=== PATIENT | female | born 1950 | race Caucasian/White ===

== ENCOUNTER 2023-05-20 02:14 | Emergency (ER) | payer OTHER, SELFPAY ==
--- NOTE | ~2023-05-20 | XR_ITS ---
XR chest 2V DATE: 05/20/2023 03:05 INDICATION: Dyspnea TECHNIQUE: 2 views COMPARISON: None FINDINGS: Mild thyromegaly. No hilar or mediastinal enlargement. No pulmonary infiltrate or consolidation, pleural effusion or pulmonary vascular congestion or pneumo thorax is detected. Dextroscoliosis and diffuse idiopathic skeletal hyperostosis of the thoracic spine. Levoscoliosis and degenerative disc disease of the lumbar spine. IMPRESSION: Mild cardiac megaly No active pulmonary disease Scoliosis and degenerative changes of the thoracic and lumbar spine Reviewed, dictated and finalized at location A.
[2023-05-20 02:13] VITALS: BP 160/87; PULSE 92; RESP 20; TEMP 36.4; O2SAT 94
--- NOTE | 2023-05-20 02:30 | ECG_ITS ---
Measurements Intervals [place] Rate: 93 P: 38 OK: 137 QRS: 16 QRSD: 106 T: 10 QT: 369 QTc: 461 Interpretive Statements SINUS RHYTHM INCOMPLETE RIGHT BUNDLE BRANCH BLOCK BASELINE ARTIFACT- I, II, III, AVR, AVL, AVF BORDERLINE ECG NO PREVIOUS ECG AVAILABLE FOR COMPARISON Electronically Signed On 05-20-2023 8:53:07 CDT by Syd Cooper D.O.
--- NOTE | 2023-05-20 02:38 | ED.GENADULT ---
HPI - General Adult General Chief complaint: Anxiety Stated complaint: ANXIETY, INSOMNIA, SOB Time Seen by Provider: 05/20/23 02:23 History of Present Illness HPI narrative: Patient is 72-year-old female who presents emerged from with chief complaint of anxiety. Patient reports that she has history of depression and was recently admitted at [facility] for suicidal ideation and depression. The patient reports she is currently staying with family members this evening and forgot her inhaler and has taken several melatonin without ability to sleep. Patient states that tonight she did get short of breath and little bit of a fullness sensation in her chest patient reports that EMS gave her some oxygen and by the time she arrived to the emergency department the symptoms have resolved. The patient denies suicidal or homicidal ideation Related Data Allergies Allergy/AdvReac Type Severity Reaction Status Date / Time No Known Allergies Allergy Verified 05/20/23 02:48 Review of Systems Review of Systems: A 10 system review of systems was completed on the patient and is negative except for what is stated in the HPI. Nursing and ancillary documentation was reviewed. PMFSH Social History Social History Substance use type: does not use Exam Narrative: GENERAL: Well-appearing, well-nourished, and in no acute distress. HEAD: Normocephalic, atraumatic. EYES: PERRLA and EOMI. ENT: Nares clear, no rhinorrhea or epistaxis. Mucous membranes moist. NECK: Supple. CHEST: Clear to auscultation. No respiratory distress. HEART: Regular rate and rhythm. No murmur heard. Normal peripheral pulses. ABDOMEN: Soft, nontender, nondistended, normal active bowel sounds. EXTREMITIES: Normal range of motion. No edema. SKIN: Warm, dry, no rash. NEURO: No focal deficits. Alert and oriented x3. PSYCH: Normal mood and affect. Course Vital Signs Vital signs: Vital Signs Temperature 36.4 C L 05/20/23 02:13 Pulse Rate 92 05/20/23 02:13 Respiratory Rate 20 05/20/23 02:13 Blood Pressure 160/87 H 05/20/23 02:13 Pulse Oximetry 94 05/20/23 02:13 Oxygen Delivery Room Air 05/20/23 02:13 Temperature 36.4 C L 05/20/23 02:13 Pulse Rate 92 05/20/23 02:13 Respiratory Rate 20 05/20/23 02:13 Blood Pressure 160/87 H 05/20/23 02:13 Pulse Oximetry 94 05/20/23 02:13 Oxygen Delivery Room Air 05/20/23 02:13 Medical Decision Making Vital Signs Vital Signs: Vital Signs Temperature 36.4 C L 05/20/23 02:13 Pulse Rate 92 05/20/23 02:13 Respiratory Rate 20 05/20/23 02:13 Blood Pressure 160/87 H 05/20/23 02:13 Pulse Oximetry 94 05/20/23 02:13 Oxygen Delivery Room Air 05/20/23 02:13 Temperature 36.4 C L 05/20/23 02:13 Pulse Rate 92 05/20/23 02:13 Respiratory Rate 20 05/20/23 02:13 Blood Pressure 160/87 H 05/20/23 02:13 Pulse Oximetry 94 05/20/23 02:13 Oxygen Delivery Room Air 05/20/23 02:13 Discharge Plan Discharge Clinical Impression: Acute anxiety, Insomnia Patient Disposition: Home, Self-Care Condition: Stable Instructions: Antibiotic Form, Insomnia (ED), Anxiety (ED) Follow-up/Referrals: German,Anam Wagner [Primary Care Provider] - Time of Disposition: 03:33
[2023-05-20] MEDS: LORazepam (*CRX) 0.5 MG TABLET PO (02:48)
[2023-05-20 03:42] VITALS: BP 144/86; PULSE 89; RESP 16; O2SAT 93
== END 2023-05-20 03:44 | disposition home or self-care (01) ==
PROVIDERS: Emergency Provider Emergency Medicine; PCP Internal Medicine Infectious Disease
DX: F41.9 Anxiety disorder, unspecified (principal); F32.A Depression, unspecified; G47.00 Insomnia, unspecified; I45.10 Unspecified right bundle-branch block
CPT/HCPCS: 71046; 93005; 99283; A9270

== ENCOUNTER 2023-07-19 21:21 | Inpatient (IN) | payer OTHER, SELFPAY ==
--- NOTE | ~2023-07-19 | CT_ITS ---
EXAMINATION: CT brain wo con DATE: 07/20/2023 00:33 INDICATION: Dizziness. TECHNIQUE: Computed tomography (CT) of the head was performed without intravenous contrast. The mA wa s adjusted according to patient size. Iterative reconstruction technique was employed. The dose-lengt h product was 681.00 mGy-cm. COMPARISON: None FINDINGS: There is no intracranial hemorrhage, acute infarction, or abnormal intracranial mass lesion . The ventricles are normal in size. The orbits are normal. The mastoid air cells are normal. There i s mild mucosal thickening in the paranasal sinuses. The orbits are normal. IMPRESSION: 1. Normal brain. Reviewed, dictated and finalized at location E. IMPRESSION: 1. Normal brain.
--- NOTE | ~2023-07-19 | XR_ITS ---
EXAMINATION: XR chest 1V portable INDICATION: Cough and dizziness TECHNIQUE: Portable AP chest at 1115 hours COMPARISON: 05/20/2023 FINDINGS: The lungs are free of acute opacities. No pleural effusion or pneumothorax. The heart size is normal. IMPRESSION: 1. No acute cardiopulmonary abnormality. Reviewed, dictated and finalized at location F.
[2023-07-19 21:24] VITALS: BP 155/86; PULSE 89; RESP 18; TEMP 35.7; O2SAT 95
--- NOTE | 2023-07-19 21:27 | ECG_ITS ---
Measurements Intervals [place] Rate: 87 P: 53 [place]: 165 QRS: 43 QRSD: 99 T: 57 QT: 403 QTc: 486 Interpretive Statements SINUS RHYTHM INCOMPLETE RIGHT BUNDLE BRANCH BLOCK BASELINE ARTIFACT- I, II, III, AVR, AVL BORDERLINE ECG COMPARED TO ECG 05/20/2023 02:47:47 NO SIGNIFICANT CHANGES Electronically Signed On 07-20-2023 6:23:36 CDT by Syd Cooper D.O.
[2023-07-19] MEDS: SODIUM CHLORIDE 0.9% IV 1,000 ML 999 ML IV CONT (23:03)
[2023-07-19] MEDS: ONDANSETRON INJ 4 MG/2 ML VIAL IV PUSH (23:03)
[2023-07-19 23:11] LABS: Basophils Absolute Auto 0.1 K/mm3 (0.0-0.1); Basophils Percent Auto 0.6 % (0.2-1.2); Eosinophils Absolute Auto 0.1 K/mm3 (0-0.3); Eosinophils Percent Auto 0.9 % (0-4.4); Hematocrit 40.4 % (37.0-47.0); Hemoglobin 13.7 g/dL (12.0-15.0); Immature Granulocyte Absolute 0.02 K/mm3 (0.00-0.031); Immature Granulocyte Percent A 0.3 % (0-0.5); Mean Corpuscular HGB Conc 33.9 g/dl (32-36); Mean Corpuscular Hemoglobin 29.2 pg (26-34); Mean Corpuscular Volume 86.1 fl (80-100); Mean Platelet Volume 11.2 fl (7.4-10.4); Monocytes Absolute Auto 0.9 K/mm3 (0.1-0.6); Monocytes Percent Auto 11.4 % (2.6-8.5); Neutrophils Absolute Auto 5.4 K/mm3 (1.3-6.7); Neutrophils Percent Auto 67.8 % (45.5-73.1); Platelet Count Result 287 k/mm3 (150-375); Red Blood Count 4.69 M/mm3 (4.2-5.4); Red Cell Distribution Width 13.5 % (11.5-14.5); White Blood Count 7.9 K/mm3 (4.5-10.0)
[2023-07-19 23:21] LABS: Lactic Acid Reflex 0.9 mmol/L (0.7-2.0); Prothrombin Time 13.7 Seconds (11.1-14.7)
[2023-07-19 23:22] LABS: Partial Thromboplastin Time 25.5 SECONDS (22.3-36.8)
[2023-07-19 23:48] LABS: Alanine Aminotransferase 25 U/L (6-35); Albumin Level 4.6 g/dL (3.5-5.1); Alkaline Phosphatase 79 U/L (38-126); Anion Gap 5 mmol/L (8-16); Aspartate Amino Transferase 27 U/L (14-36); Bilirubin,Total 0.9 mg/dL (0.2-1.3); Blood Urea Nitrogen 9 mg/dL (7-17); Calcium 9.3 mg/dL (8.4-10.2); Carbon Dioxide 30 mmol/L (22-30); Chloride 89 mmol/L (98-107); Estimated CRCL calculation 74 ml/min; Estimated Glomerular Filt Rate > 60; Glucose 126 mg/dL (65-110); Lipase 221 U/L (23-300); Magnesium 1.9 mg/dL (1.6-2.3); Potassium 3.4 mmol/L (3.4-5.0); Sodium 124 mmol/L (137-145)
[2023-07-20] VITALS (20 sets, daily range): BP systolic 131–171; BP diastolic 67–92; PULSE 76–110; RESP 12–18; TEMP 35.9–37; O2SAT 93–100; BMI 34.0
[2023-07-20 00:01] LABS: Troponin I < 0.012 ng/mL (0.000-0.034)
--- NOTE | 2023-07-20 00:46 | ED.GENADULT ---
HPI - General Adult General Chief complaint: Dizziness Stated complaint: dizziness Time Seen by Provider: 07/20/23 00:01 History of Present Illness HPI narrative: Patient is a 72-year-old female who presents the emergency department with chief complaint of dizziness. Patient reports throughout the day she has had dizzy episodes that she describes as pressure in her head patient also reports that she has had nausea and vomiting and reports that she has felt generally weak. The patient reports that she is scheduled to started a memory care unit on Sunday the patient did receive some IV fluids and Zofran upon initial arrival in the emergency department is feeling better Related Data Allergies Allergy/AdvReac Type Severity Reaction Status Date / Time No Known Allergies Allergy Verified 07/20/23 00:15 Review of Systems Review of Systems: A 10 system review of systems was completed on the patient and is negative except for what is stated in the HPI. Nursing and ancillary documentation was reviewed. PMFSH Social History Social History Substance use type: does not use Exam Narrative: GENERAL: Well-appearing, well-nourished, and in no acute distress. HEAD: Normocephalic, atraumatic. EYES: PERRLA and EOMI. ENT: Nares clear, no rhinorrhea or epistaxis. Mucous membranes moist. NECK: Supple. CHEST: Clear to auscultation. No respiratory distress. HEART: Regular rate and rhythm. No murmur heard. Normal peripheral pulses. ABDOMEN: Soft, nontender, nondistended, normal active bowel sounds. EXTREMITIES: Normal range of motion. No edema. SKIN: Warm, dry, no rash. NEURO: No focal deficits. Alert and oriented x3. PSYCH: Normal mood and affect. Course Vital Signs Vital signs: Vital Signs Temperature 35.7 C L 07/19/23 21:24 Pulse Rate 89 07/19/23 21:24 Respiratory Rate 18 07/19/23 21:24 Blood Pressure 155/86 H 07/19/23 21:24 Pulse Oximetry 95 07/19/23 21:24 Oxygen Delivery Room Air 07/19/23 21:24 Temperature 35.7 C L 07/19/23 21:24 Pulse Rate 110 H 07/20/23 00:20 Respiratory Rate 18 07/19/23 21:24 Blood Pressure 131/82 07/20/23 00:20 Pulse Oximetry 95 07/19/23 21:24 Oxygen Delivery Room Air 07/19/23 21:24 Medical Decision Making MDM Narrative Medical decision making narrative: Differential diagnosis includes infectious process, electrolyte abnormality, dehydration, dysrhythmia Laboratory studies were obtained on the patient which showed a sodium of 124 The patient has received a liter of normal saline in the emergency department Chest x-ray showed no acute abnormalities Head showed no evidence of hemorrhage EKG showed sinus rhythm rate of [address] elevation or ST depression Due to hyponatremia the patient will be admitted to the hospital service for further care. Vital Signs Vital Signs: Vital Signs Temperature 35.7 C L 07/19/23 21:24 Pulse Rate 89 07/19/23 21:24 Respiratory Rate 18 07/19/23 21:24 Blood Pressure 155/86 H 07/19/23 21:24 Pulse Oximetry 95 07/19/23 21:24 Oxygen Delivery Room Air 07/19/23 21:24 Temperature 35.7 C L 07/19/23 21:24 Pulse Rate 110 H 07/20/23 00:20 Respiratory Rate 18 07/19/23 21:24 Blood Pressure 131/82 07/20/23 00:20 Pulse Oximetry 95 07/19/23 21:24 Oxygen Delivery Room Air 07/19/23 21:24 Lab Data 07/19/23 23:02 07/19/23 23:02 Labs: Lab Results 07/19/23 Range/Units 23:02 WBC 7.9 (4.5-10.0) K/mm3 RBC 4.69 (4.2-5.4) M/mm3 Hgb 13.7 (12.0-15.0) g/dL Hct 40.4 (37.0-47.0) % MCV 86.1 (80-100) fl MCH 29.2 (26-34) pg MCHC 33.9 (32-36) g/dl RDW 13.5 (11.5-14.5) % Plt Count 287 (150-375) k/mm3 MPV 11.2 H (7.4-10.4) fl Immature Gran % (Auto) 0.3 (0-0.5) % Neut % (Auto) 67.8 (45.5-73.1) % Lymph % (Auto) 19.0 (18.3-44.2) % [place] % (Auto) 11.4 H (
--- NOTE | 2023-07-20 01:42 | PM.IMHP ---
H&P: HPI History of Present Illness Date/Time: 07/20/23 01:20 Chief Complaint: Dizziness. Narrative: This is a 72-year-old female recently diagnosed with early-onset dementia, bipolar disorder, depression, anxiety, hypothyroidism, hypertension, hyperlipidemia, and chronic obstructive pulmonary disease who presented to the emergency department via private vehicle accompanied by her sister for evaluation of dizziness. The patient provides the following history and her sister provides additional information with the patient's permission. Is not unusual for the patient to have vertigo every once in a while and she has a prescription for meclizine at home. The last couple of days she has once again started complaining of vertigo associated with nausea and a pressure-like sensation in her head. Sister is a retired nurse and has been monitoring her blood pressures which have been running in the 170s over 100s which is very unusual for her. She is on 12.5 mg of hydrochlorothiazide daily however yesterday her sister gave her 3 doses of the hydrochlorothiazide 8 hours apart in attempts to get the blood pressure down. Blood pressures have improved somewhat though the patient seems to be feeling increasingly dizzy and nauseated. She was thus brought in for evaluation. The patient describes constant movement, feeling as though she is on a boat. She continues to have a pressure-like headache throughout and nausea with dry heaves but no vomiting. She has not had fever, chills, sweats, sore throat, cough, chest pain, palpitations, vomiting, diarrhea, or dysuria. She also denies visual changes, facial droop, difficulty speaking and swallowing, focal weakness, and paresthesias. Aside from extra doses of hydrochlorothiazide, she recently had her Prozac increased from 40 mg to 60 mg daily, and she was taken off of trazodone in favor of quetiapine 100 mg at bedtime. She does not drink fluid in excess. In the ED: She was afebrile on arrival and her blood pressures have been in the 130s to 150s systolic. Labs were significant for a sodium of 124, potassium 3.4, chloride 89, creatinine 0.60. Brain CT and chest x-ray showed no acute findings. EKG showed a sinus rhythm without ST segment depressions or elevations. She is being admitted in this setting for evaluation of vertigo in addition to hyponatremia. Review of Systems Review of Systems: Twelve systems were reviewed. Approximately 8 weeks ago the patient had a suicidal ideation. She has had a longstanding history of bipolar disorder, anxiety, and depression. Several years ago she had electroconvulsive therapy treatment which seemed to improve her symptoms of depression however her memory has not been great since that time. She suffers from short-term memory loss and was recently diagnosed with early-onset dementia. She does not currently have any suicidal ideations, plans for suicide, or harmful thoughts. Except as documented, all other systems were reviewed and are negative. [facility] Past Medical History Medical History (Updated 07/20/23 @ 04:09 by Manisha Apodaca PA-C) Anxiety Bipolar disorder Chronic obstructive pulmonary disease Depression History of suicide attempt Hyperlipidemia Hypertension Hypothyroidism Macular degeneration Osteoarthritis Prediabetes Family History Family History (Updated 07/20/23 @ 04:05 by Manisha Apodaca PA-C) Mother Bipolar disorder Social History Social History (Updated 07/20/23 @ 04:06 by Manisha Apodaca PA-C) Social History: Healthcare power of research attorney: Elba Monkau, sister. Code status: Do not resuscitate. Smoking status: Former smoker Tobacco type: cigarettes Alcohol intake: never Substance use: never Substance use type: does not use Lack of Transportation: No Lack of Food: Never True Current Housing: I Have Housing Concerned About Future Housing: No Difficulty Paying Gas/Electric Bills: No Difficulty Paying for Meds: No Currently Une
--- NOTE | 2023-07-20 02:04 | ADMGEN ---
This patient, Hayley Jasso, was admitted to [facility] Surg Room 324-02 at 0205. Patient/family oriented to hospital policies and general routines including ID bracelet, bed and alarms, visiting hours, pain management, procedures, bathroom and other care routines, personal items, smoking policy, room service/diet, and visiting hours. Information on how to activate the Rapid Response Team has been discussed. Patient/Family are encouraged to report perceived risks to care and to ask questions if they do not understand what they are told or what they should do.
[2023-07-20] MEDS: ONDANSETRON INJ 4 MG/2 ML VIAL IV PUSH ×2 (02:10→08:36)
[2023-07-20] MEDS: SODIUM CHLORIDE 0.9% IV 1,000 ML 125 ML IV CONT (02:15)
--- NOTE | 2023-07-20 03:30 | PC.NURSE ---
pt c/o nausea and dizziness during admission assessment. iv zofran administered with some relief. at 031 pt began feeling nauseous and dizzy again and began yelling help me! into the call light and the hallway. call placed to hospitalist who stated she will put in orders
[2023-07-20] MEDS: diazePAM (*CRX) 5 MG TABLET PO (04:06)
--- NOTE | 2023-07-20 04:07 | PC.NURSE ---
order for one time dose of PO valium received. medication administered per MAR
[2023-07-20 04:09] LABS: Anion Gap 5 mmol/L (8-16); Blood Urea Nitrogen 8 mg/dL (7-17); Calcium 8.7 mg/dL (8.4-10.2); Carbon Dioxide 29 mmol/L (22-30); Chloride 90 mmol/L (98-107); Estimated CRCL calculation 76 ml/min; Estimated Glomerular Filt Rate > 60; Glucose 113 mg/dL (65-110); Sodium 124 mmol/L (137-145)
[2023-07-20 04:31] LABS: Thyroid Stimulating Hormone Reflex 0.576 uIU/mL (0.465-4.68)
--- NOTE | 2023-07-20 04:49 | PC.NURSE ---
pt had a continent void, however RN is unable to collect void as urine sample as it was contaminated with stool. new hat placed in toilet
--- NOTE | 2023-07-20 05:55 | PC.NURSE ---
pt up to bathroom w/ assist of 1 and a walker, and states that she feels less dizzy and less nauseous than before
--- NOTE | 2023-07-20 06:14 | PC.NURSE ---
sister bringing in paperwork stating patient wants to be DNR
[2023-07-20] MEDS: LEVOTHYROXINE SODIUM 88 MCG TABLET PO (06:17)
[2023-07-20 07:18] LABS: Sodium 123 mmol/L (137-145)
[2023-07-20 07:40] LABS: Creatinine Urine 57.4 mg/dL
[2023-07-20] MEDS: UMECLIDINIUM/VILANTEROL 62.5-25 MCG ELLIPTA 1 PUFF INHALATION (07:41)
[2023-07-20 07:45] LABS: Sodium Urine Random 189 meq/L
[2023-07-20 08:08] LABS: Glucose Point of Care 119 mg/dl (65-105)
[2023-07-20 08:08] LABS: Appearance Urine Cloudy (Clear); Bacteria Urine 1+ /hpf; Bilirubin Urine Negative (Negative); Blood Urine Negative (Negative); Color Urine Yellow (Yellow); Glucose Urine UA Negative (Negative); Granular Casts Urine Present /lpf; Ketones Urine Negative (Negative); Leukocyte Esterase Ur Trace LEU/UL (Negative); Nitrate Urine Negative (Negative); Non Pathogenic Casts 0-2; Protein Urine Negative (Negative); Specific Grav Ur 1.014 (1.001-1.035); Squamous Epithelial Cell Urine Occasional /hpf (Few); Urobilinogen Urine 0.2 mg/dL (<2.0); WBC Urine 0-5 /hpf
[2023-07-20] MEDS: FLUoxetine HCL 20 MG CAPSULE 60 MG PO (08:37)
[2023-07-20] MEDS: DONEPEZIL HCL 5 MG TABLET PO (08:37)
[2023-07-20] MEDS: SIMVASTATIN 20 MG TABLET PO (08:37)
[2023-07-20] MEDS: hydrOXYzine pamoate 25 MG CAPSULE PO ×2 (08:37→20:55)
[2023-07-20 08:49] LABS: Add Urine Microscopic? YES
[2023-07-20 11:25] LABS: Glucose Point of Care 149 mg/dl (65-105)
[2023-07-20 11:40] LABS: Sodium 123 mmol/L (137-145)
--- NOTE | 2023-07-20 14:00 | PM.IMPN ---
Progress Note: A&P Assessment and Plan (1) Hyponatremia: Code(s): E87.1 - Hypo-osmolality and hyponatremia Status: Acute (2) Hypertension: Code(s): I10 - Essential (primary) hypertension Status: Acute (3) Hyperlipidemia: Code(s): E78.5 - Hyperlipidemia, unspecified Status: Acute (4) Hypothyroidism: Code(s): E03.9 - Hypothyroidism, unspecified Status: Acute (5) Bipolar disorder: Code(s): F31.9 - Bipolar disorder, unspecified Status: Acute Plan # SIADH? , hyponatremia -continue to monitor electrolytes -Sodium 123 -Seroquel, hydrochlorothiazide, fluoxetine -awaiting serum osmolarity, ur osm 189 # depression, bipolar -depression antidepressants however now having hyponatremia which may be caused by these medications -for anxiety may continue p.r.n. hydroxyzine -currently on Prozac 60 mg daily, home Seroquel held # chronic conditions -dementia: Continue Aricept -hyperlipidemia: Simvastatin -hypothyroidism: Levothyroxine, TSH 0.576 -COPD: Continue home Anoro Ellipta -essential hypertension: Hydrochlorothiazide Diet: Diabetic diet DVT prophylaxis: SQ heparin Code status: Full code Disposition: Pending PT OT, likely home in 2-3 days Subjective Date/time seen: 07/20/23 14:00 Interval history: Patient seen and examined. She states she is depressed but does not have any other complaints. She recently had increased prozac dose, and we may have to stop that if Na does not improve. Will continue to monitor electrolytes. Hyponatremia may be secondary to extra dose of hydrochlorothiazide. Patient denies fever, chills, nausea vomiting, diarrhea. Review of Systems Review of Systems: 10 point ROS complete, negative other than what is specified in HPI. Exam Narrative: - GENERAL: Pleasant woman in no acute distress. Well-nourished. - EYES: EOMI. Anicteric. - HENT: Moist mucous membranes. - LUNGS: Clear to auscultation bilaterally, no wheezing, rhonchi, or rales. - CARDIOVASCULAR: Regular rate and rhythm. - ABDOMEN: Soft, non-tender and non-distended. No palpable masses. - EXTREMITIES: No edema. Peripheral pulses 2+. Non-tender. - NEUROLOGIC: No focal neurological deficits. CN II-XII grossly intact. - PSYCHIATRIC: Awake, Alert. Flat affect, depressed mood. - SKIN: No rashes or lesions. Warm. - LYMPH: No cervical lymphadenopathy. Objective Data Vital Signs Vital Signs: Vital Signs - 24 hr 07/19/23 21:24 07/20/23 00:17 07/20/23 00:19 Temperature 35.7 C L Pulse Rate 89 86 93 Respiratory Rate 18 Blood Pressure 155/86 H 143/81 H 138/92 H Pulse Oximetry 95 Oxygen Delivery Room Air Fraction of Inspired Oxygen 07/20/23 00:20 07/20/23 02:29 07/20/23 01:49 Temperature 36.1 C L Pulse Rate 110 H 80 87 Respiratory Rate 18 18 Blood Pressure 131/82 151/76 H 132/87 Pulse Oximetry 93 100 Oxygen Delivery Fraction of Inspired Oxygen 07/20/23 03:52 07/20/23 04:00 07/20/23 06:00 Temperature 35.9 C L Pulse Rate 78 84 Respiratory Rate 18 Blood Pressure 143/74 H Pulse Oximetry 95 Oxygen Delivery Room Air Fraction of Inspired Oxygen 07/20/23 07:41 07/20/23 07:41 07/20/23 08:00 Temperature 36.1 C L Pulse Rate 79 86 Respiratory Rate 18 12 Blood Pressure 164/89 H Pulse Oximetry 93 96 Oxygen Delivery Room Air Fraction of Inspired Oxygen 07/20/23 08:11 07/20/23 08:12 07/20/23 08:35 Temperature Pulse Rate 94 98 76 Respiratory Rate Blood Pressure 157/86 H 137/84 Pulse Oximetry 96 96 Oxygen Delivery Fraction of Inspired Oxygen 07/20/23 08:35 Temperature Pulse Rate Respiratory Rate Blood Pressure Pulse Oximetry Oxygen Delivery Room Air Fraction of Inspired Oxygen Intake/Output Intake/Output: Intake & Output 07/17/23 07/18/23 07/19/23 07/20/23 23:59 23:59 23:59 23:59 Intake Total 1000 354 Output Total 300 Balance 1000 54 Meds/Res
[2023-07-20 16:04] LABS: Sodium 120 mmol/L (137-145)
--- NOTE | 2023-07-20 16:40 | PM.CNNEP ---
Assessment and Plan Assessment and plan (1) Hyponatremia: Code(s): E87.1 - Hypo-osmolality and hyponatremia Status: Acute Assessment and Plan: presumably acute precipitated by more frequent use of HCTZ and increased dose of SSRI(?) HCTZ and SSRI on hold evaluation to date: TSH okay urine electrolytes non-prerenal serum/urine osmo pending on salt tabs already enhance fluld restriction follow trend of repeat sodium levels (2) Hypertension: Code(s): I10 - Essential (primary) hypertension Status: Acute Assessment and Plan: reasonable control follow trend of hemodynamics I will continue follow patient with you while she remains hospitalized and make further recommendations as necessary. Thank you for allowing me to participate in care this patient. History of Present Illness Reason for Consult Consult date: 07/20/23 Reason for consult: hyponatremia Chief Complaint Chief complaint: Generalized Weakness, Dizziness, Hyponatremia History of Present Illness Narrative: The patient is a 72-year-old female with a past medical history as outlined below who presented to [facility] Emergency room for further evaluation of dizziness. The patient apparently has a chronic issue/problem with vertigo and takes meclizine as needed. However, in the last couple of days, she has noticed increasing episodes of vertigo associated with nausea and a pressure-like sensation in her head. Her sister, who is a retired nurse, noted that the patient's blood pressure has been running somewhat on the higher side of normal, specifically in the 170s over 100s and this is quite high for the patient. An effort to better control her blood pressure, her sister gave the patient 3 extra doses of hydrochlorothiazide in attempt to optimize her blood pressure. Her blood pressure did improve but the patient continued to feel dizzy and nauseated. Given the persistence of her symptoms despite therapy to date, she was brought to the emergency room for further assessment Workup and evaluation emergency room demonstrated the patient be hemodynamically stable and she continued to complain of pressure-like sensation in her head. Furthermore, associated nausea and vomiting continue be persistent with her headache. She reports no fevers, chills, sweats, cough, chest pain, palpitations, diarrhea, or dysuria. She reports no visual changes difficulty speaking or swallowing, focal deficits, or paresthesias. It should be noted that along with the extra dose of hydrochlorothiazide that she received, her Prozac was increased from 40-60 mg given her ongoing issues and problems with depression. She denies any other acute symptoms. Routine blood tests were significant for olesya it hyponatremia but otherwise no other critical electrolyte abnormalities. The CT scan of her brain and chest x-ray showed no acute findings either. Given the hyponatremia in conjunction with her vertigo, she was admitted the hospital for further evaluation and therapy. Since her admission, her sodium level has not really improved with conservative therapy including holding her hydrochlorothiazide and put her on a fluid restriction as well as addition of oral salt tablets. She was just recently taken off of her Prozac; this was continued on admission due to her severe/significant depression but was discontinued today due to her persistent/worsening hyponatremia. Renal consultation was requested due to her acute hyponatremia. Although I have no previous labs to compare to, reportedly, she had labs done about a month ago which did not demonstrate any laboratory abnormalities and hence the assumption is that her sodium level was normal at that time as well. Her risk factors for hyponatremia include her recent medications including hydrochlorothiazide, SSRI/Prozac, as well as her known history of hypothyroidism and COPD. She reportedly does not drink excess
[2023-07-20 17:08] LABS: Glucose Point of Care 124 mg/dl (65-105)
[2023-07-20] MEDS: SODIUM CHLORIDE 1 GM TABLET PO (17:24)
[2023-07-20 19:52] LABS: Sodium 121 mmol/L (137-145)
[2023-07-20 20:02] LABS: Glucose Point of Care 141 mg/dl (65-105)
[2023-07-20] MEDS: HEPARIN SODIUM 5,000 UNITS/ML VIAL 5000 UNITS SUB-Q (20:55)
--- NOTE | 2023-07-20 22:58 | PC.NURSE ---
hospitalist notified of patient's high blood pressure and orthostatic vital signs
[2023-07-20] MEDS: MELATONIN 3 MG TABLET PO (23:39)
[2023-07-21] VITALS (10 sets, daily range): BP systolic 124–146; BP diastolic 67–80; PULSE 71–99; RESP 14–16; TEMP 35.9–36.3; O2SAT 98–100
[2023-07-21 00:57] LABS: Sodium 121 mmol/L (137-145)
[2023-07-21 04:20] LABS: Basophils Percent Auto 0.4 % (0.2-1.2); Eosinophils Absolute Auto 0.1 K/mm3 (0-0.3); Eosinophils Percent Auto 0.9 % (0-4.4); Hematocrit 37.5 % (37.0-47.0); Hemoglobin 13.1 g/dL (12.0-15.0); Immature Granulocyte Absolute 0.02 K/mm3 (0.00-0.031); Immature Granulocyte Percent A 0.2 % (0-0.5); Lymphocytes Absolute Auto 2.13 K/mm3 (0.9-3.2); Mean Corpuscular HGB Conc 34.9 g/dl (32-36); Mean Corpuscular Hemoglobin 29.4 pg (26-34); Mean Corpuscular Volume 84.1 fl (80-100); Mean Platelet Volume 11.3 fl (7.4-10.4); Monocytes Absolute Auto 1.1 K/mm3 (0.1-0.6); Monocytes Percent Auto 13.1 % (2.6-8.5); Neutrophils Absolute Auto 5.1 K/mm3 (1.3-6.7); Neutrophils Percent Auto 60.4 % (45.5-73.1); Platelet Count Result 257 k/mm3 (150-375); Red Blood Count 4.46 M/mm3 (4.2-5.4); Red Cell Distribution Width 12.8 % (11.5-14.5); White Blood Count 8.5 K/mm3 (4.5-10.0)
[2023-07-21 04:28] LABS: Anion Gap 5 mmol/L (8-16); Blood Urea Nitrogen 7 mg/dL (7-17); Calcium 8.6 mg/dL (8.4-10.2); Carbon Dioxide 30 mmol/L (22-30); Chloride 87 mmol/L (98-107); Estimated CRCL calculation 76 ml/min; Estimated Glomerular Filt Rate > 60; Glucose 101 mg/dL (65-110); Sodium 122 mmol/L (137-145)
[2023-07-21] MEDS: LEVOTHYROXINE SODIUM 88 MCG TABLET PO (06:41)
[2023-07-21 07:49] LABS: Glucose Point of Care 117 mg/dl (65-105)
[2023-07-21] MEDS: UMECLIDINIUM/VILANTEROL 62.5-25 MCG ELLIPTA 1 PUFF INHALATION (07:50)
[2023-07-21] MEDS: hydrOXYzine pamoate 25 MG CAPSULE PO (08:53)
[2023-07-21] MEDS: HEPARIN SODIUM 5,000 UNITS/ML VIAL 5000 UNITS SUB-Q ×2 (08:53→20:49)
[2023-07-21] MEDS: POTASSIUM CHLORIDE 20 MEQ ER TABLET 40 MEQ PO (08:53)
[2023-07-21] MEDS: SODIUM CHLORIDE 1 GM TABLET PO ×2 (08:53→15:43)
[2023-07-21] MEDS: ACETAMINOPHEN 325 MG TABLET 650 MG PO ×2 (08:54→15:43)
[2023-07-21] MEDS: DONEPEZIL HCL 5 MG TABLET PO (08:54)
[2023-07-21] MEDS: SIMVASTATIN 20 MG TABLET PO (08:54)
[2023-07-21] MEDS: KCL 20 MEQ/SW 100 ML 100 ML 50 MEQ IVPB (08:56)
[2023-07-21] MEDS: SODIUM CHLORIDE 0.9% IV 100 ML 30 ML (09:15)
[2023-07-21 11:28] LABS: IFOB Positive Control Positive; Immunochemical Fecal Occult Bl Positive (N)
--- NOTE | 2023-07-21 11:28 | PM.IMPN ---
Progress Note: A&P Assessment and Plan (1) Hyponatremia: Code(s): E87.1 - Hypo-osmolality and hyponatremia Status: Acute (2) Hypokalemia: Code(s): E87.6 - Hypokalemia Status: Acute (3) Diarrhea: Code(s): R19.7 - Diarrhea, unspecified Status: Acute Plan # SIADH? , evolemic hyponatremia -continue to monitor electrolytes -Sodium 120-123 -held Seroquel, hydrochlorothiazide, fluoxetine -awaiting serum osmolarity, ur osm 189 -fluid restriction 1.8 L, giving salt tab BID -appreciate nephrology consultation # diarrhea # electrolyte imbalances -hypokalemia: Potassium 3.0, giving KCL 20mEq IV and 40mEq PO -potassium dropped likely secondary to GI loss -checking for c.diff # depression, bipolar -depression antidepressants however now having hyponatremia which may be caused by these medications -for anxiety may continue p.r.n. hydroxyzine -home Seroquel and prozac held # chronic conditions -dementia: Continue Aricept -hyperlipidemia: Simvastatin -hypothyroidism: Levothyroxine, TSH 0.576 -COPD: Continue home Anoro Ellipta -essential hypertension: held Hydrochlorothiazide Diet:??Diabetic diet DVT prophylaxis:?SQ heparin Code status:?Full code Disposition:?home in >2 days Subjective Date/time seen: 07/21/23 11:28 Interval history: Patient seen and examined. She is having increased diarrhea now has hypokalemia from GI losses. Nurses concern about C diff due to the smell, will check C diff. will replete potassium 3.0 with KCL 20mEq IV and 40mEq PO. Continue monitoring hyponatremia, fluid restriction, salt tabs, appreciate Nephrology consultation. Patient denies fever, chills, nausea, vomiting. She endorses diarrhea. She complains of pain with the IV potassium chloride, will slow rate. Review of Systems Review of Systems: 10 point ROS complete, negative other than what is specified in HPI. Exam Narrative: - GENERAL:? Pleasant woman in no acute distress. - EYES: EOMI. Anicteric. - HENT: Moist mucous membranes. - LUNGS: Clear to auscultation bilaterally, no wheezing, rhonchi, or rales. - CARDIOVASCULAR: Regular rate and rhythm. - ABDOMEN: Soft, non-tender and non-distended. No palpable masses. - EXTREMITIES: No edema. Peripheral pulses 2+. Non-tender. - NEUROLOGIC: No focal neurological deficits. CN II-XII grossly intact. - PSYCHIATRIC: Awake, Alert, not oriented.? Flat affect, depressed mood. easily fixated - SKIN: No rashes or lesions. Warm. - LYMPH: No cervical lymphadenopathy. Objective Data Vital Signs Vital Signs: Vital Signs - 24 hr 07/20/23 14:00 07/20/23 12:00 07/20/23 16:00 Temperature 37.0 C Pulse Rate 89 78 89 Respiratory Rate 14 Blood Pressure 156/89 H Pulse Oximetry 97 Oxygen Delivery 07/20/23 21:13 07/20/23 20:00 07/20/23 20:00 Temperature 36.2 C L Pulse Rate 80 85 Respiratory Rate 14 Blood Pressure 164/84 H Pulse Oximetry 97 Oxygen Delivery Room Air 07/20/23 23:00 07/20/23 23:05 07/20/23 23:10 Temperature Pulse Rate Respiratory Rate Blood Pressure 171/75 H 164/87 H 152/67 H Pulse Oximetry Oxygen Delivery 07/21/23 00:00 07/21/23 04:00 07/21/23 05:45 Temperature 36.2 C L Pulse Rate 86 85 88 Respiratory Rate 16 Blood Pressure 145/80 H Pulse Oximetry 98 Oxygen Delivery 07/21/23 08:50 07/21/23 08:50 Temperature Pulse Rate 99 Respiratory Rate Blood Pressure Pulse Oximetry Oxygen Delivery Room Air Intake/Output Intake/Output: Intake & Output 07/18/23 07/19/23 07/20/23 07/21/23 23:59 23:59 23:59 23:59 Intake Total 1000 590 198 Output Total 600 Balance 1000 -10 198 Meds/Results Medications: Active Medications Generic Name Dose Route Start Last Admin Trade Name Freq PRN Reason Stop Dose Admin Acetaminophen 650 mg 07/20/23 04:14 07/21/23 08:54 Acetaminophen 325 Mg Tablet PO 650 mg Q6H PRN Administration Mild Pain (1-3)
[2023-07-21 11:48] LABS: Glucose Point of Care 166 mg/dl (65-105)
[2023-07-21 12:00] LABS: Toxigenic C. Diff NEGATIVE (NEGATIVE)
[2023-07-21] MEDS: ONDANSETRON INJ 4 MG/2 ML VIAL IV PUSH (13:09)
--- NOTE | 2023-07-21 13:24 | PM.PNNEP ---
Progress Note: A&P Assessment and Plan (1) Hyponatremia: Code(s): E87.1 - Hypo-osmolality and hyponatremia Status: Acute Assessment and Plan: presumably acute precipitated by more frequent use of HCTZ and increased dose of SSRI(?) HCTZ and SSRI on hold evaluation to date: TSH okay urine electrolytes non-prerenal serum/urine osmo pending on salt tabs already and fluid restriction consider adding lose dose loop diuretics possibly may need for 3% saline follow trend of repeat sodium levels (2) Hypertension: Code(s): I10 - Essential (primary) hypertension Status: Acute Assessment and Plan: reasonable control follow trend of hemodynamics Will continue to follow. Subjective Date/time seen: 07/21/23 13:24 Interval history: Follow-up for hyponatremia (presumably acute). Sodium appears to be slowly improving with current therapy/interventions; no apparent distress voiced at the time of my visit; no issues overnight or earlier this morning; no other acute complaints to report currently. Exam Narrative: General: elderly Caucaisan female in NAD Heart: normal S1 and S2; no rub Lungs: clear to auscultation Abdomen: soft, nontender, nondistended, positive bowel sounds Extremities: no cyanosis or clubbing; no edema Skin: warm and dry Objective Data Vital Signs Vital Signs: Vital Signs Temp Pulse Resp BP Pulse Ox O2 Del Method 07/21/23 12:00 77 07/21/23 08:50 Room Air 07/21/23 08:50 99 07/21/23 05:45 97.2 F L 88 16 145/80 H 98 07/21/23 04:00 85 07/21/23 00:00 86 07/20/23 23:10 152/67 H 07/20/23 23:05 164/87 H 07/20/23 23:00 171/75 H 07/20/23 20:00 85 07/20/23 20:00 Room Air 07/20/23 21:13 97.2 F L 80 14 164/84 H 97 Intake/Output Intake/Output: Intake & Output 07/18/23 07/19/23 07/20/23 07/21/23 23:59 23:59 23:59 23:59 Intake Total 1000 590 398 Output Total 600 Balance 1000 -10 398 Meds/Results Medications: Active Medications Generic Name Dose Route Start Last Admin Trade Name Freq PRN Reason Stop Dose Admin Acetaminophen 650 mg 07/20/23 04:14 07/21/23 15:43 Acetaminophen 325 Mg Tablet PO 650 mg Q6H PRN Administration Mild Pain (1-3) or Fever Donepezil HCl 5 mg 07/20/23 09:00 07/21/23 08:54 Donepezil Hcl 5 Mg Tablet PO 5 mg DAILY HARRIS Administration Fluoxetine HCl 60 mg 07/20/23 09:00 07/20/23 08:37 Fluoxetine Hcl 20 Mg Capsule PO 60 mg DAILY HARRIS Administration Heparin Sodium (Porcine) 5,000 units 07/20/23 21:00 07/21/23 08:53 Heparin Sodium 5,000 Units/Ml Vial SUB-Q 5,000 units Q12HR HARRIS Administration Hydroxyzine Pamoate 25 mg 07/20/23 04:15 07/21/23 08:53 Hydroxyzine Pamoate 25 Mg Capsule PO 25 mg TID PRN Administration ANXIETY Sodium Chloride 1,000 mls @ 125 mls/hr 07/20/23 00:50 07/20/23 02:15 Normal Saline Iv IV CONT 125 mls/hr .Q8H HARRIS Administration Ibuprofen 600 mg 07/21/23 15:22 07/21/23 15:43 Ibuprofen 600 Mg Tablet PO 600 mg Q6H PRN Administration Pain Rated 1-3 Levothyroxine Sodium 88 mcg 07/20/23 06:30 07/21/23 06:41 Levothyroxine Sodium 88 Mcg Tablet PO 88 mcg DAILY@0630 HARRIS Administration Melatonin 3 mg 07/20/23 23:34 07/20/23 23:39 Melatonin 3 Mg Tablet PO 3 mg HS HARRIS Administration Ondansetron HCl 4 mg 07/20/23 00:49 07/21/23 13:09 Ondansetron Inj 4 Mg/2 Ml Vial IV PUSH 4 mg Q4H PRN Administration Nausea Simvastatin 20 mg 07/20/23 09:00 07/21/23 08:54 Simvastatin 20 Mg Tablet PO 20 mg DAILY HARRIS Administration Sodium Chloride 1 gm 07/20/23 17:00 07/21/23 15:43 Sodium Chloride 1 Gm Tablet PO 1 gm BID HARRIS Administration Umeclidinium/Vilanterol 1 puff 07/20/23 08:00 07/21/23 07:50 Umeclidinium/Vilanterol 62.5-25 Mcg Ellipta INHALATION 1 puff DAILYRT HARRIS Ad
[2023-07-21 14:56] LABS: Hematocrit 38.2 % (37.0-47.0); Hemoglobin 13.2 g/dL (12.0-15.0)
[2023-07-21 15:42] LABS: Alanine Aminotransferase 24 U/L (6-35); Albumin Level 4.4 g/dL (3.5-5.1); Alkaline Phosphatase 60 U/L (38-126); Anion Gap 9 mmol/L (8-16); Aspartate Amino Transferase 28 U/L (14-36); Bilirubin,Total 0.7 mg/dL (0.2-1.3); Blood Urea Nitrogen 8 mg/dL (7-17); Calcium 8.6 mg/dL (8.4-10.2); Carbon Dioxide 27 mmol/L (22-30); Chloride 87 mmol/L (98-107); Estimated CRCL calculation 90 ml/min; Estimated Glomerular Filt Rate > 60; Glucose 139 mg/dL (65-110); Potassium 3.2 mmol/L (3.4-5.0); Sodium 123 mmol/L (137-145)
[2023-07-21] MEDS: IBUPROFEN 600 MG TABLET PO (15:43)
--- NOTE | 2023-07-21 15:51 | PC.NURSE ---
Per physician order, I contacted Dr. Dorman with current sodium level of 123. Dr. Dorman instructed to have another sodium drawn at 1800 and call with the results. Order entered.
[2023-07-21 16:47] LABS: Glucose Point of Care 113 mg/dl (65-105)
[2023-07-21 18:40] LABS: Sodium 125 mmol/L (137-145)
--- NOTE | 2023-07-21 19:09 | PC.NURSE ---
Per physician note, I contacted Dr. Dorman with pt's latest sodium level of 125. Dr. Dorman orders for another sodium lab at 2300 with instructions to call with results. Orders entered.
[2023-07-21] MEDS: MELATONIN 3 MG TABLET PO (20:49)
[2023-07-21 21:27] LABS: Glucose Point of Care 101 mg/dl (65-105)
[2023-07-21 23:54] LABS: Sodium 123 mmol/L (137-145)
[2023-07-22] VITALS (9 sets, daily range): BP systolic 136–156; BP diastolic 81–92; PULSE 70–92; RESP 14–20; TEMP 36.2–36.4; O2SAT 94–97
[2023-07-22] MEDS: LEVOTHYROXINE SODIUM 88 MCG TABLET PO (05:56)
[2023-07-22 06:58] LABS: Basophils Absolute Auto 0.1 K/mm3 (0.0-0.1); Basophils Percent Auto 0.6 % (0.2-1.2); Eosinophils Absolute Auto 0.2 K/mm3 (0-0.3); Hematocrit 39.4 % (37.0-47.0); Hemoglobin 13.3 g/dL (12.0-15.0); Immature Granulocyte Absolute 0.05 K/mm3 (0.00-0.031); Immature Granulocyte Percent A 0.6 % (0-0.5); Lymphocytes Absolute Auto 1.99 K/mm3 (0.9-3.2); Lymphocytes Percent Auto 24.9 % (18.3-44.2); Mean Corpuscular HGB Conc 33.8 g/dl (32-36); Mean Corpuscular Hemoglobin 29.3 pg (26-34); Mean Corpuscular Volume 86.8 fl (80-100); Mean Platelet Volume 11.5 fl (7.4-10.4); Monocytes Absolute Auto 1.2 K/mm3 (0.1-0.6); Monocytes Percent Auto 15.5 % (2.6-8.5); Neutrophils Absolute Auto 4.5 K/mm3 (1.3-6.7); Neutrophils Percent Auto 56.4 % (45.5-73.1); Platelet Count Result 257 k/mm3 (150-375); Red Blood Count 4.54 M/mm3 (4.2-5.4); Red Cell Distribution Width 13.1 % (11.5-14.5)
[2023-07-22 07:12] LABS: Anion Gap 6 mmol/L (8-16); Blood Urea Nitrogen 6 mg/dL (7-17); Calcium 8.6 mg/dL (8.4-10.2); Carbon Dioxide 29 mmol/L (22-30); Chloride 88 mmol/L (98-107); Estimated CRCL calculation 76 ml/min; Estimated Glomerular Filt Rate > 60; Glucose 97 mg/dL (65-110); Magnesium 2.1 mg/dL (1.6-2.3); Potassium 3.3 mmol/L (3.4-5.0); Sodium 123 mmol/L (137-145)
--- NOTE | 2023-07-22 07:53 | PC.NURSE ---
Per physician to nurse note, Dr. Dorman was called with pt's latest sodium level of 123. Orders to administer 3% Sodium Chloride at 85 mls/hr for 3 hours and to redraw labs one hour after completion were given and entered.
[2023-07-22 07:59] LABS: Glucose Point of Care 116 mg/dl (65-105)
[2023-07-22] MEDS: SODIUM CHLORIDE 3% 255 ML 85 ML IV CONT (08:19)
[2023-07-22] MEDS: HEPARIN SODIUM 5,000 UNITS/ML VIAL 5000 UNITS SUB-Q ×2 (08:20→21:03)
[2023-07-22] MEDS: SODIUM CHLORIDE 1 GM TABLET PO ×2 (08:22→16:58)
[2023-07-22] MEDS: hydrOXYzine pamoate 25 MG CAPSULE PO (08:22)
[2023-07-22] MEDS: SIMVASTATIN 20 MG TABLET PO (08:22)
[2023-07-22] MEDS: DONEPEZIL HCL 5 MG TABLET PO (08:22)
[2023-07-22] MEDS: ACETAMINOPHEN 325 MG TABLET 650 MG PO (08:22)
[2023-07-22] MEDS: UMECLIDINIUM/VILANTEROL 62.5-25 MCG ELLIPTA 1 PUFF INHALATION (08:23)
[2023-07-22] MEDS: POTASSIUM CHLORIDE 20 MEQ ER TABLET 40 MEQ PO ×2 (08:24→16:58)
--- NOTE | 2023-07-22 10:55 | PM.IMPN ---
Progress Note: A&P Assessment and Plan (1) Hypokalemia: Code(s): E87.6 - Hypokalemia Status: Acute (2) Hyponatremia: Code(s): E87.1 - Hypo-osmolality and hyponatremia Status: Acute (3) Bipolar disorder: Code(s): F31.9 - Bipolar disorder, unspecified Status: Acute Plan # likley SIADH , evolemic hyponatremia -continue to monitor electrolytes -Sodium 123, not changing, stable -held Seroquel, hydrochlorothiazide, fluoxetine -awaiting serum osmolarity, ur osm 189 -fluid restriction 1.8 L, continue salt tab BID -appreciate nephrology consultation: Giving 3% saline # diarrhea # electrolyte imbalances -hypokalemia: Potassium 3.3, will replete with 40 mEq KCL, stop date tomorrow. Patient does not tolerate IV potassium chloride infusion due to burning -potassium dropped likely secondary to GI loss -supportive care for diarrhea # depression, bipolar -depression antidepressants however now having hyponatremia which may be caused by these medications -for anxiety may continue p.r.n. hydroxyzine -home Seroquel and prozac held # chronic conditions -dementia: Continue Aricept -hyperlipidemia: Simvastatin -hypothyroidism: Levothyroxine, TSH 0.576 -COPD: Continue home Anoro Ellipta -essential hypertension: held Hydrochlorothiazide Diet:??Diabetic diet DVT prophylaxis:?SQ heparin Code status:?Full code Disposition:?home in 2-3 days Subjective Date/time seen: 07/22/23 10:55 Interval history: Patient seen examined. Sodium still at 123, nephrology has ordered 3% saline. Patient denies fever, chills, nausea vomiting, diarrhea. Potassium is 3.3, giving 40 mEq potassium chloride bid for 2 days. Review of Systems Review of Systems: 10 point ROS complete, negative other than what is specified in HPI. Exam Narrative: - GENERAL:? Pleasant woman in no acute distress. - EYES: EOMI. Anicteric. - HENT: Moist mucous membranes. - LUNGS: Clear to auscultation bilaterally, no wheezing, rhonchi, or rales. - CARDIOVASCULAR: Regular rate and rhythm. - ABDOMEN: Soft, non-tender and non-distended. - EXTREMITIES: No edema. Peripheral pulses 2+. Non-tender. - NEUROLOGIC: No focal neurological deficits. CN II-XII grossly intact. - PSYCHIATRIC: Awake, Alert, not oriented.? Flat affect, normal mood. - SKIN: No rashes or lesions. Warm. Objective Data Vital Signs Vital Signs: Vital Signs - 24 hr 07/21/23 12:00 07/21/23 14:00 07/21/23 16:00 Temperature 36.3 C L Pulse Rate 77 83 89 Respiratory Rate 14 Blood Pressure 146/79 H Pulse Oximetry 98 Oxygen Delivery 07/21/23 20:00 07/21/23 22:00 07/21/23 20:00 Temperature 36.2 C L Pulse Rate 71 86 Respiratory Rate 14 Blood Pressure 124/67 Pulse Oximetry 98 Oxygen Delivery Room Air 07/22/23 00:00 07/22/23 05:35 07/22/23 05:40 Temperature Pulse Rate 77 Respiratory Rate Blood Pressure 156/92 H 138/81 Pulse Oximetry Oxygen Delivery 07/22/23 04:00 07/22/23 08:24 07/22/23 08:24 Temperature Pulse Rate 70 87 Respiratory Rate 20 Blood Pressure Pulse Oximetry 94 Oxygen Delivery Room Air 07/22/23 08:20 07/22/23 08:00 Temperature Pulse Rate 92 Respiratory Rate Blood Pressure Pulse Oximetry Oxygen Delivery Room Air Intake/Output Intake/Output: Intake & Output 07/19/23 07/20/23 07/21/23 07/22/23 23:59 23:59 23:59 23:59 Intake Total 1000 590 454 236 Output Total 600 306 Balance 1000 -10 454 -70 Meds/Results Medications: Active Medications Generic Name Dose Route Start Last Admin Trade Name Freq PRN Reason Stop Dose Admin Acetaminophen 650 mg 07/20/23 04:14 07/22/23 08:22 Acetaminophen 325 Mg Tablet PO 650 mg Q6H PRN Administration Mild Pain (1-3) or Fever Donepezil HCl 5 mg 07/20/23 09:00 07/22/23 08:22 Donepezil Hcl 5 Mg Tablet PO 5 mg DAILY HARRIS Administration Fluoxetine HCl 60 mg 07/20/23 09:00 07/20/23 08:37
[2023-07-22 11:24] LABS: Glucose Point of Care 132 mg/dl (65-105)
--- NOTE | 2023-07-22 11:45 | PM.PNNEP ---
Progress Note: A&P Assessment and Plan (1) Hyponatremia: Code(s): E87.1 - Hypo-osmolality and hyponatremia Status: Acute Assessment and Plan: presumably acute precipitated by more frequent use of HCTZ and increased dose of SSRI(?) HCTZ and SSRI on hold evaluation to date: TSH okay urine electrolytes non-prerenal serum/urine osmo pending on salt tabs already and fluid restriction 3% saline today follow trend of repeat sodium levels (2) Hypertension: Code(s): I10 - Essential (primary) hypertension Status: Acute Assessment and Plan: reasonable control follow trend of hemodynamics Will continue to follow. Subjective Date/time seen: 07/22/23 11:45 Interval history: Follow-up for hyponatremia (presumably acute). Sodium had been improving but seems stuck at 123 -- 3% saline ordered to help facilitate improvement in sodium level; no other acute issues or problems voiced at this time; no apparent distress noted; asking when she can go home. Exam Narrative: General: elderly Caucaisan female in NAD Heart: normal S1 and S2; no rub Lungs: clear to auscultation Abdomen: soft, nontender, nondistended, positive bowel sounds Extremities: no cyanosis or clubbing; no edema Skin: warm and intact Objective Data Vital Signs Vital Signs: Vital Signs Temp Pulse Resp BP Pulse Ox O2 Del Method 07/22/23 08:00 92 07/22/23 08:20 Room Air 07/22/23 08:24 87 20 07/22/23 08:24 94 Room Air 07/22/23 04:00 70 07/22/23 05:40 138/81 07/22/23 05:35 156/92 H 07/22/23 00:00 77 07/21/23 20:00 86 07/21/23 22:00 97.1 F L 71 14 124/67 98 07/21/23 20:00 Room Air 07/21/23 16:00 89 Intake/Output Intake/Output: Intake & Output 07/19/23 07/20/23 07/21/23 07/22/23 23:59 23:59 23:59 23:59 Intake Total 1000 590 454 354 Output Total 600 306 Balance 1000 -10 454 48 Meds/Results Medications: Active Medications Generic Name Dose Route Start Last Admin Trade Name Freq PRN Reason Stop Dose Admin Acetaminophen 650 mg 07/20/23 04:14 07/22/23 08:22 Acetaminophen 325 Mg Tablet PO 650 mg Q6H PRN Administration Mild Pain (1-3) or Fever Donepezil HCl 5 mg 07/20/23 09:00 07/22/23 08:22 Donepezil Hcl 5 Mg Tablet PO 5 mg DAILY HARRIS Administration Fluoxetine HCl 60 mg 07/20/23 09:00 07/20/23 08:37 Fluoxetine Hcl 20 Mg Capsule PO 60 mg DAILY HARRIS Administration Heparin Sodium (Porcine) 5,000 units 07/20/23 21:00 07/22/23 08:20 Heparin Sodium 5,000 Units/Ml Vial SUB-Q 5,000 units Q12HR HARRIS Administration Hydroxyzine Pamoate 25 mg 07/20/23 04:15 07/22/23 08:22 Hydroxyzine Pamoate 25 Mg Capsule PO 25 mg TID PRN Administration ANXIETY Sodium Chloride 1,000 mls @ 125 mls/hr 07/20/23 00:50 07/20/23 02:15 Normal Saline Iv IV CONT 125 mls/hr .Q8H HARRIS Administration Ibuprofen 600 mg 07/21/23 15:22 07/21/23 15:43 Ibuprofen 600 Mg Tablet PO 600 mg Q6H PRN Administration Pain Rated 1-3 Levothyroxine Sodium 88 mcg 07/20/23 06:30 07/22/23 05:56 Levothyroxine Sodium 88 Mcg Tablet PO 88 mcg DAILY@0630 HARRIS Administration Melatonin 3 mg 07/20/23 23:34 07/21/23 20:49 Melatonin 3 Mg Tablet PO 3 mg HS HARRIS Administration Ondansetron HCl 4 mg 07/20/23 00:49 07/21/23 13:09 Ondansetron Inj 4 Mg/2 Ml Vial IV PUSH 4 mg Q4H PRN Administration Nausea Potassium Chloride 40 meq 07/22/23 09:00 07/22/23 08:24 Potassium Chloride 20 Meq Er Tablet PO 07/23/23 17:01 40 meq BID HARRIS Administration Simvastatin 20 mg 07/20/23 09:00 07/22/23 08:22 Simvastatin 20 Mg Tablet PO 20 mg DAILY HARRIS Administration Sodium Chloride 1 gm 07/20/23 17:00 07/22/23 08:22 Sodium Chloride 1 Gm Tablet PO 1 gm BID HARRIS Administration Umeclidinium/Vilanterol 1 puff 07/20/23 08:00 /
[2023-07-22 13:02] LABS: Alanine Aminotransferase 22 U/L (6-35); Albumin Level 4.1 g/dL (3.5-5.1); Alkaline Phosphatase 46 U/L (38-126); Anion Gap 6 mmol/L (8-16); Aspartate Amino Transferase 30 U/L (14-36); Bilirubin,Total 0.6 mg/dL (0.2-1.3); Blood Urea Nitrogen 9 mg/dL (7-17); Calcium 8.2 mg/dL (8.4-10.2); Carbon Dioxide 29 mmol/L (22-30); Chloride 91 mmol/L (98-107); Estimated CRCL calculation 76 ml/min; Estimated Glomerular Filt Rate > 60; Glucose 125 mg/dL (65-110); Potassium 3.8 mmol/L (3.4-5.0); Sodium 126 mmol/L (137-145)
--- NOTE | 2023-07-22 13:56 | PC.NURSE ---
Per physician to nurse order, Dr. Dorman was called with pt's latest sodium of 126. New orders for a lab draw at 1700 entered.
[2023-07-22 16:38] LABS: Glucose Point of Care 124 mg/dl (65-105)
[2023-07-22] MEDS: MELATONIN 3 MG TABLET PO (21:03)
[2023-07-22 21:16] LABS: Alanine Aminotransferase 23 U/L (6-35); Albumin Level 4.1 g/dL (3.5-5.1); Alkaline Phosphatase 55 U/L (38-126); Anion Gap 8 mmol/L (8-16); Aspartate Amino Transferase 30 U/L (14-36); Bilirubin,Total 0.4 mg/dL (0.2-1.3); Blood Urea Nitrogen 10 mg/dL (7-17); Calcium 8.7 mg/dL (8.4-10.2); Carbon Dioxide 27 mmol/L (22-30); Chloride 95 mmol/L (98-107); Estimated CRCL calculation 90 ml/min; Estimated Glomerular Filt Rate > 60; Glucose 105 mg/dL (65-110); Potassium 3.6 mmol/L (3.4-5.0); Sodium 130 mmol/L (137-145)
--- NOTE | 2023-07-22 22:08 | PC.NURSE ---
messaged left per Natalie wire charger for MD Metz for pt NA level now 130 which is trending up from 126.
[2023-07-23] VITALS (13 sets, daily range): BP systolic 116–141; BP diastolic 65–114; PULSE 74–95; RESP 18–20; TEMP 36.1–36.8; O2SAT 92–100
[2023-07-23] MEDS: hydrOXYzine pamoate 25 MG CAPSULE PO ×3 (03:42→20:38)
[2023-07-23] MEDS: LEVOTHYROXINE SODIUM 88 MCG TABLET PO (06:03)
[2023-07-23 06:54] LABS: Basophils Absolute Auto 0.1 K/mm3 (0.0-0.1); Basophils Percent Auto 0.9 % (0.2-1.2); Eosinophils Absolute Auto 0.2 K/mm3 (0-0.3); Eosinophils Percent Auto 2.3 % (0-4.4); Hematocrit 39.8 % (37.0-47.0); Hemoglobin 13.5 g/dL (12.0-15.0); Immature Granulocyte Absolute 0.03 K/mm3 (0.00-0.031); Immature Granulocyte Percent A 0.3 % (0-0.5); Lymphocytes Absolute Auto 2.27 K/mm3 (0.9-3.2); Lymphocytes Percent Auto 24.1 % (18.3-44.2); Mean Corpuscular HGB Conc 33.9 g/dl (32-36); Mean Corpuscular Hemoglobin 29.4 pg (26-34); Mean Corpuscular Volume 86.7 fl (80-100); Mean Platelet Volume 11.3 fl (7.4-10.4); Monocytes Absolute Auto 1.5 K/mm3 (0.1-0.6); Monocytes Percent Auto 15.4 % (2.6-8.5); Neutrophils Absolute Auto 5.4 K/mm3 (1.3-6.7); Platelet Count Result 255 k/mm3 (150-375); Red Blood Count 4.59 M/mm3 (4.2-5.4); Red Cell Distribution Width 13.6 % (11.5-14.5); White Blood Count 9.4 K/mm3 (4.5-10.0)
[2023-07-23 06:59] LABS: Anion Gap 4 mmol/L (8-16); Blood Urea Nitrogen 8 mg/dL (7-17); Carbon Dioxide 33 mmol/L (22-30); Chloride 94 mmol/L (98-107); Estimated CRCL calculation 76 ml/min; Estimated Glomerular Filt Rate > 60; Glucose 92 mg/dL (65-110); Magnesium 2.2 mg/dL (1.6-2.3); Potassium 4.2 mmol/L (3.4-5.0); Sodium 131 mmol/L (137-145)
[2023-07-23] MEDS: UMECLIDINIUM/VILANTEROL 62.5-25 MCG ELLIPTA 1 PUFF INHALATION (07:08)
[2023-07-23 07:51] LABS: Glucose Point of Care 108 mg/dl (65-105)
[2023-07-23] MEDS: HEPARIN SODIUM 5,000 UNITS/ML VIAL 5000 UNITS SUB-Q ×2 (08:46→20:39)
[2023-07-23] MEDS: DONEPEZIL HCL 5 MG TABLET PO (08:46)
[2023-07-23] MEDS: SIMVASTATIN 20 MG TABLET PO (08:46)
[2023-07-23] MEDS: SODIUM CHLORIDE 1 GM TABLET PO ×2 (08:46→16:21)
[2023-07-23] MEDS: POTASSIUM CHLORIDE 20 MEQ ER TABLET 40 MEQ PO ×2 (08:46→16:21)
--- NOTE | 2023-07-23 11:04 | PM.PNNEP ---
Progress Note: A&P Assessment and Plan (1) Hyponatremia: Code(s): E87.1 - Hypo-osmolality and hyponatremia Status: Acute Assessment and Plan: slow improvement noted presumably acute precipitated by more frequent use of HCTZ and increased dose of SSRI(?) HCTZ and SSRI on hold evaluation to date: TSH okay urine electrolytes non-prerenal serum/urine osmo pending on salt tabs already and fluid restriction 3% saline x 1 (on 07/22/23) follow trend of repeat sodium levels (2) Hypertension: Code(s): I10 - Essential (primary) hypertension Status: Chronic Assessment and Plan: reasonable control follow trend of hemodynamics Given improvement in sodium level, not opposed to discharge from renal perspective if otherwise medically stable. Will continue to follow. Subjective Date/time seen: 07/23/23 11:04 Interval history: Follow-up for hyponatremia (presumably acute). Sodium doing significantly better following 3% saline infusion; no other complaints voiced other than she wants to go home; no apparent distress noted. Exam Narrative: General: elderly Caucaisan female in NAD Heart: normal S1 and S2; no rub Lungs: clear to auscultation Abdomen: soft, nontender, nondistended, positive bowel sounds Extremities: no cyanosis or clubbing; no edema Skin: no rash Objective Data Vital Signs Vital Signs: Vital Signs Temp Pulse Resp BP Pulse Ox O2 Del Method 07/23/23 11:04 134/75 07/23/23 11:00 96.9 F L 92 134/65 100 07/23/23 08:00 Room Air 07/23/23 07:10 91 18 07/23/23 07:10 91 18 92 Room Air 07/23/23 05:55 98.2 F 88 18 141/87 H 100 07/23/23 04:00 85 07/23/23 00:00 82 07/22/23 20:00 71 07/22/23 20:00 97 Room Air 07/22/23 21:34 97.6 F 82 20 136/84 97 07/22/23 14:00 97.1 F L 79 14 156/85 H 97 Intake/Output Intake/Output: Intake & Output 07/20/23 07/21/23 07/22/23 07/23/23 23:59 23:59 23:59 23:59 Intake Total 590 454 590 558 Output Total 600 806 500 Balance -10 454 -216 58 Meds/Results Medications: Active Medications Generic Name Dose Route Start Last Admin Trade Name Freq PRN Reason Stop Dose Admin Acetaminophen 650 mg 07/20/23 04:14 07/22/23 08:22 Acetaminophen 325 Mg Tablet PO 650 mg Q6H PRN Administration Mild Pain (1-3) or Fever Donepezil HCl 5 mg 07/20/23 09:00 07/23/23 08:46 Donepezil Hcl 5 Mg Tablet PO 5 mg DAILY HARRIS Administration Fluoxetine HCl 60 mg 07/20/23 09:00 07/20/23 08:37 Fluoxetine Hcl 20 Mg Capsule PO 60 mg DAILY HARRIS Administration Heparin Sodium (Porcine) 5,000 units 07/20/23 21:00 07/23/23 08:46 Heparin Sodium 5,000 Units/Ml Vial SUB-Q 5,000 units Q12HR HARRIS Administration Hydroxyzine Pamoate 25 mg 07/20/23 04:15 07/23/23 08:46 Hydroxyzine Pamoate 25 Mg Capsule PO 25 mg TID PRN Administration ANXIETY Sodium Chloride 1,000 mls @ 125 mls/hr 07/20/23 00:50 07/20/23 02:15 Normal Saline Iv IV CONT 125 mls/hr .Q8H HARRIS Administration Ibuprofen 600 mg 07/21/23 15:22 07/21/23 15:43 Ibuprofen 600 Mg Tablet PO 600 mg Q6H PRN Administration Pain Rated 1-3 Levothyroxine Sodium 88 mcg 07/20/23 06:30 07/23/23 06:03 Levothyroxine Sodium 88 Mcg Tablet PO 88 mcg DAILY@0630 HARRIS Administration Melatonin 3 mg 07/20/23 23:34 07/22/23 21:03 Melatonin 3 Mg Tablet PO 3 mg HS HARRIS Administration Ondansetron HCl 4 mg 07/20/23 00:49 07/21/23 13:09 Ondansetron Inj 4 Mg/2 Ml Vial IV PUSH 4 mg Q4H PRN Administration Nausea Potassium Chloride 40 meq 07/22/23 09:00 07/23/23 08:46 Potassium Chloride 20 Meq Er Tablet PO 07/23/23 17:01 40 meq BID HARRIS Administration Simvastatin 20 mg 07/20/23 09:00 07/23/23 08:46 Simvastatin 20 Mg Tablet PO 20 mg DAILY HARRIS Administration Sodium Chloride 1 gm 07/20/23 17:00 10
[2023-07-23 12:21] LABS: Glucose Point of Care 108 mg/dl (65-105)
[2023-07-23 17:11] LABS: Glucose Point of Care 102 mg/dl (65-105)
--- NOTE | 2023-07-23 18:05 | PM.IMPN ---
Progress Note: A&P Assessment and Plan (1) Diarrhea: Code(s): R19.7 - Diarrhea, unspecified Status: Acute (2) Hypokalemia: Code(s): E87.6 - Hypokalemia Status: Acute (3) Vertigo: Code(s): R42 - Dizziness and giddiness Status: Acute (4) Hyponatremia: Code(s): E87.1 - Hypo-osmolality and hyponatremia Status: Acute (5) Hypertension: Code(s): I10 - Essential (primary) hypertension Status: Chronic (6) Hyperlipidemia: Code(s): E78.5 - Hyperlipidemia, unspecified Status: Acute (7) Hypothyroidism: Code(s): E03.9 - Hypothyroidism, unspecified Status: Acute (8) Bipolar disorder: Code(s): F31.9 - Bipolar disorder, unspecified Status: Acute (9) Anxiety: Code(s): F41.9 - Anxiety disorder, unspecified Status: Acute (10) Depression: Code(s): F32.A - Depression, unspecified Status: Acute (11) Generalized weakness: Code(s): R53.1 - Weakness Status: Acute (12) Acute hyponatremia: Code(s): E87.1 - Hypo-osmolality and hyponatremia Status: Acute Plan Plan # teeley SIADH , evolemic hyponatremia -continue to monitor electrolytes -Sodium 123, not changing, stable -held Seroquel, hydrochlorothiazide, fluoxetine -awaiting serum osmolarity, ur osm 189 -fluid restriction 1.8 L, continue salt tab BID -appreciate nephrology consultation:? Giving?3% saline 07/23: pt is no longer on hypertonic saline. Likely overuse of diuretics is the cause with high sodium and signs of dehydration- tachycardia, depressed sodium and chloride. limited labs- no urine osm/serum osm. only urine sodium of 189. will give 500 ml bolus of ns and f/u tomorrow morning. # diarrhea # electrolyte imbalances -hypokalemia: Potassium 3.3, will replete with 40 mEq KCL, stop date tomorrow.? Patient does not tolerate IV potassium chloride infusion due to burning -potassium dropped likely secondary to GI loss -supportive care for diarrhea # depression, bipolar -depression antidepressants however now having hyponatremia which may be caused by these medications -for anxiety may continue p.r.n. hydroxyzine -home Seroquel and prozac held # chronic conditions -dementia: Continue Aricept -hyperlipidemia: Simvastatin -hypothyroidism: Levothyroxine, TSH 0.576 -COPD: Continue home Anoro Ellipta -essential hypertension: held Hydrochlorothiazide Diet:??Diabetic diet DVT prophylaxis:?SQ heparin Code status:?Full code Disposition:?likely dc tomorrow Subjective Date/time seen: 07/23/23 18:05 Interval history: feels slightly unsteady when going up to use the restroom. also mildly tachycardic. c/f dehydration. Review of Systems Review of Systems: no other complaints Exam Narrative: - GENERAL:? Pleasant woman in no acute distress. - EYES: EOMI. Anicteric. - HENT: Moist mucous membranes. - LUNGS: Clear to auscultation bilaterally, no wheezing, rhonchi, or rales. - CARDIOVASCULAR: Regular rate and rhythm. - ABDOMEN: Soft, non-tender and non-distended. - EXTREMITIES: No edema. Peripheral pulses 2+. Non-tender. - NEUROLOGIC: No focal neurological deficits. CN II-XII grossly intact. - PSYCHIATRIC: Awake, Alert, not oriented.? Flat affect, normal mood. - SKIN: No rashes or lesions. Warm. Objective Data Vital Signs Vital Signs: Vital Signs - 24 hr 07/22/23 21:34 07/22/23 20:00 07/22/23 20:00 Temperature 97.6 F Pulse Rate 82 71 Respiratory Rate 20 Blood Pressure 136/84 Pulse Oximetry 97 97 Oxygen Delivery Room Air 07/23/23 00:00 07/23/23 04:00 07/23/23 05:55 Temperature 98.2 F Pulse Rate 82 85 88 Respiratory Rate 18 Blood Pressure 141/87 H Pulse Oximetry 100 Oxygen Delivery 07/23/23 07:10 07/23/23 07:10 07/23/23 08:00 Temperature Pulse Rate 91 91 Respiratory Rate 18 18 Blood Pressure Pulse Oximetry 92 Oxygen Delivery Room Air Room Air 07/23/23 11:00
[2023-07-23] MEDS: SODIUM CHLORIDE 0.9% IV 500 ML 999 ML IV CONT (18:17)
[2023-07-23] MEDS: MELATONIN 3 MG TABLET PO (20:38)
[2023-07-23 20:46] LABS: Glucose Point of Care 125 mg/dl (65-105)
--- NOTE | 2023-07-23 21:13 | PC.NURSE ---
Addendum entered by Vivi Davidson RN 07/23/23 21:14: error wrong lab value glucose was 125 no need to notify Original Note: called Md Dorman NA 125 now
--- NOTE | 2023-07-23 22:17 | PC.NURSE ---
inquired about sleep aide to HEBER Apodaca, no orders received yet, HEBER Apodaca to review chart and place orders as appropriate
[2023-07-24] VITALS (8 sets, daily range): BP systolic 140–158; BP diastolic 64–86; PULSE 74–110; RESP 13–16; TEMP 36–36.6; O2SAT 98–99
[2023-07-24 03:48] LABS: Osmolality, Urine 591 mOsm/kg (50-1200)
[2023-07-24] MEDS: LEVOTHYROXINE SODIUM 88 MCG TABLET PO (05:39)
[2023-07-24] MEDS: hydrOXYzine pamoate 25 MG CAPSULE PO (06:41)
[2023-07-24 07:34] LABS: Anion Gap 5 mmol/L (8-16); Blood Urea Nitrogen 9 mg/dL (7-17); Carbon Dioxide 29 mmol/L (22-30); Chloride 96 mmol/L (98-107); Estimated CRCL calculation 77 ml/min; Estimated Glomerular Filt Rate > 60; Glucose 90 mg/dL (65-110); Potassium 4.5 mmol/L (3.4-5.0); Sodium 130 mmol/L (137-145)
[2023-07-24] MEDS: SODIUM CHLORIDE 1 GM TABLET PO ×2 (08:14→16:52)
[2023-07-24] MEDS: DONEPEZIL HCL 5 MG TABLET PO (08:15)
[2023-07-24] MEDS: SIMVASTATIN 20 MG TABLET PO (08:15)
[2023-07-24] MEDS: HEPARIN SODIUM 5,000 UNITS/ML VIAL 5000 UNITS SUB-Q (08:15)
[2023-07-24 08:29] LABS: Glucose Point of Care 81 mg/dl (65-105)
[2023-07-24] MEDS: UMECLIDINIUM/VILANTEROL 62.5-25 MCG ELLIPTA 1 PUFF INHALATION (08:44)
[2023-07-24 11:43] LABS: Glucose Point of Care 145 mg/dl (65-105)
--- NOTE | 2023-07-24 16:21 | PM.DS ---
DS: Admitting Diagnosis Discharge Date 07/24/23 Admitting Diagnosis hyponatremia DS: Discharge Diagnosis Discharge Diagnosis Plan 1. Acute hyponatremia slow improvement noted presumably acute precipitated by more frequent use of HCTZ and increased dose of SSRI(?) HCTZ and SSRI on hold evaluation to date: TSH okay urine electrolytes non-prerenal serum/urine osmo pending on salt tabs already and fluid restriction 3% saline x 1 (on 07/22/23) follow trend of repeat sodium levels -continue to monitor electrolytes -Sodium 123, not changing, stable -held Seroquel, hydrochlorothiazide, fluoxetine -awaiting serum osmolarity, ur osm 189 -fluid restriction 1.8 L, continue salt tab BID--> I have increased them to TID on dc 07/23:?pt is no longer on hypertonic saline. Likely overuse of diuretics is the cause with high sodium and signs of dehydration- tachycardia, depressed sodium and chloride. limited labs- no urine osm/serum osm. only urine sodium of 189. will give 500 ml bolus of ns and f/u tomorrow morning. 07/24: na went down from 131 to [address] fluid restriction of 1.8L and salt tabs TID Recommend BMP every other day to trend sodium 2. HTN start metoprolol 25 mg er 3. Depression # depression, bipolar -depression antidepressants however now having hyponatremia which may be caused by these medications -for anxiety may continue p.r.n. hydroxyzine -home Seroquel and prozac held Will have to figure out a different medication to try in the [facility] no prozac seroquel can be used. low likelihood for siadh according to literature 4. # diarrhea # electrolyte imbalances -hypokalemia: Potassium 3.3, will replete with 40 mEq KCL, stop date tomorrow.? Patient does not tolerate IV potassium chloride infusion due to burning -potassium dropped likely secondary to GI loss -supportive care for diarrhea- resolved 5 # chronic conditions -dementia: Continue Aricept -hyperlipidemia: Simvastatin -hypothyroidism: Levothyroxine, TSH 0.576 -COPD: Continue home Anoro Ellipta -essential hypertension: held Hydrochlorothiazide DS: Summary Hospital Course Reason for hospitalization: hyponatremia Hospital Course: See above in dc plan The patient is a 72-year-old female with a past medical history as outlined below who presented to [facility] Emergency room for further evaluation of dizziness. The patient apparently has a chronic issue/problem with vertigo and takes meclizine as needed.? However, in the last couple of days, she has noticed increasing episodes of vertigo associated with nausea and a pressure-like sensation in her head.? Her sister, who is a retired nurse,? noted that the patient's blood pressure has been running somewhat on the higher side of normal, specifically in the 170s over 100s and this is quite high for the patient.? An effort to better control her blood pressure, her sister gave the patient 3 extra doses of hydrochlorothiazide in attempt to optimize her blood pressure.? Her blood pressure did improve but the patient continued to feel dizzy and nauseated.? Given the persistence of her symptoms despite therapy to date, she was brought to the emergency room for further assessment Workup and evaluation emergency room demonstrated the patient be hemodynamically stable and she continued to complain of pressure-like sensation in her head.? Furthermore, associated nausea and vomiting continue be persistent with her headache.? She reports no fevers, chills, sweats, cough, chest pain, palpitations, diarrhea, or dysuria.? She reports no visual changes difficulty speaking or swallowing, focal deficits, or paresthesias.? It should be noted that along with the extra dose of hydrochlorothiazide that she received, her Prozac was increased from 40-60 mg given her ongoing issues and problems with depression.? She denies any other acute symptoms.? Routine blood tests were significant for olesya it hyponatremia but otherwise
[2023-07-24 17:08] LABS: SARS-CoV-2 RNA PCR Negative (Negative)
[2023-07-24 17:13] LABS: Glucose Point of Care 111 mg/dl (65-105)
== END 2023-07-24 17:30 | DRG 641 ==
LOC: ANHED 07-20 00:49 → ANH3MEDSUR 07-20 01:13
PROVIDERS: Internal Medicine Nephrology; Physician Assistant; Student in an Organized Health Care Education/Training Program; Admitting Provider Internal Medicine; Emergency Provider Emergency Medicine; PCP Internal Medicine Infectious Disease; Visit Provider Internal Medicine
DX: E87.1 Hypo-osmolality and hyponatremia (principal); F31.9 Bipolar disorder, unspecified; E87.6 Hypokalemia; R19.7 Diarrhea, unspecified; F03.90 Unspecified dementia, unspecified severity, without behavioral disturbance, psychotic disturbance, mood disturbance, and anxiety; E78.5 Hyperlipidemia, unspecified; E03.9 Hypothyroidism, unspecified; J44.9 Chronic obstructive pulmonary disease, unspecified; R42 Dizziness and giddiness; I10 Essential (primary) hypertension; F41.9 Anxiety disorder, unspecified; M19.90 Unspecified osteoarthritis, unspecified site; H35.30 Unspecified macular degeneration; Z87.891 Personal history of nicotine dependence; Z20.822 Contact with and (suspected) exposure to COVID-19
CPT/HCPCS: 36415; 70450; 71045; 80048; 80053; 81001; 82274; 82570; 82948; 83605; 83690; 83735; 83930; 83935; 84295; 84300; 84443; 84484; 85014; 85018; 85025; 85610; 85730; 87045; 87427; 87449; 87493; 87635; 93005; 94640; 96361; 96365; 96366; 96374; 99285; A9270; G0378; J1644; J2405; J3480; J7030; J7040; J7131

== ENCOUNTER 2024-03-12 07:22 | Emergency (ER) | payer MEDICARE, MEDICAID, SELFPAY ==
--- NOTE | ~2024-03-12 | XR_ITS ---
EXAMINATION: XR lumbar spine 2-3V DATE: 03/12/2024 09:15 INDICATION: Low back pain. TECHNIQUE: 3 views of lumbar spine were obtained. COMPARISON: None. FINDINGS: There is 4 degrees levocurvature of lumbar spine. There is 3 mm anterolisthesis of L4 on L5 . There is mild chronic anterior wedging of T12 vertebral body. There is mildly decreased disc height at L3-L4 and moderately decreased disc height at L4-L5 and L5-S1. There is multilevel severe facet j oint osteoarthritis. IMPRESSION: 1. Moderate lumbar spondylosis. Reviewed, dictated and finalized at location A.
[2024-03-12 07:31] VITALS: BP 140/76; PULSE 91; RESP 16; TEMP 36.7; O2SAT 98
[2024-03-12 07:55] LABS: Appearance Urine Clear (Clear); Bilirubin Urine Negative (Negative); Blood Urine Negative (Negative); Color Urine Yellow (Yellow); Glucose Urine UA Negative (Negative); Ketones Urine Negative (Negative); Leukocyte Esterase Ur Negative LEU/UL (Negative); Nitrate Urine Negative (Negative); Protein Urine Negative (Negative); Specific Grav Ur 1.014 (1.001-1.035); Urobilinogen Urine 0.2 mg/dL (<2.0)
[2024-03-12 07:59] LABS: Add Urine Microscopic? NO
[2024-03-12] MEDS: ACETAMINOPHEN 500 MG TABLET 1000 MG PO (09:23)
--- NOTE | 2024-03-12 09:37 | ED.BACK ---
HPI - Back Pain/Injury General Chief Complaint: Back Pain/Injury Stated Complaint: left flank pain Time Seen by Provider: 03/12/24 08:52 History of Present Illness HPI Narrative: 73-year-old female multiple medical comorbidities presents to the emergency room for evaluation of left upper back pain. Patient states pain began earlier this week. Denies any known injury or trauma. States states pain is worse with movement specifically retaining pending the torso. Denies any dysuria. She states she has taken some Tylenol with mild relief. Related Data Home Medications Medication Instructions Recorded Confirmed donepezil 5 mg tablet 5 mg PO DAILY 07/20/23 02/28/24 hydroxyzine pamoate 25 mg capsule 25 mg PO PRN PRN ANXIETY 07/20/23 02/28/24 levothyroxine 88 mcg tablet 88 mcg PO DAILY 07/20/23 02/28/24 simvastatin 20 mg tablet 20 mg PO DAILY 07/20/23 02/28/24 umeclidinium 62.5 mcg-vilanterol 1 inh inhalation DAILY 07/20/23 02/28/24 25 mcg/actuation powdr for inhalation (Anoro Ellipta) valacyclovir 500 mg tablet 500 mg PO PRN PRN HERPESVIRAL 07/20/23 02/28/24 INFECTION Allergies Allergy/AdvReac Type Severity Reaction Status Date / Time No Known Allergies Allergy Verified 03/12/24 07:23 Review of Systems Review of Systems: ROS unremarkable as otherwise stated in the HPI [facility] Past Medical History Medical History Anxiety Bipolar disorder Chronic obstructive pulmonary disease Depression History of suicide attempt Hyperlipidemia Hypertension Hypothyroidism Macular degeneration Osteoarthritis Prediabetes Family History Family History Mother Bipolar disorder Social History Social History Social History: Healthcare power of eligibility analyst: Elba Chapin, sister. Code status: Do not resuscitate. Smoking status: Former smoker Tobacco type: cigarettes Alcohol intake: never Substance use: never Substance use type: does not use Lack of Transportation: No Lack of Food: Never True Current Housing: I Have Housing Concerned About Future Housing: No Difficulty Paying Gas/Electric Bills: No Difficulty Paying for Meds: No Currently Unemployed: No Education: Associate Degree Difficulty w/ Childcare or Family Care: No Living arrangements: with family Additional living arrangements comments: Patient was living on her own prior to 8 weeks ago, she is now staying with her sister Elba and will be going to a memory care facility in the upcoming weeks. She raised 4 children and 3 of her grandchildren. Occupation/Education: retired Additional occupation/education comments: Retired beautician. Spiritual care concerns: No Exam Narrative: GENERAL: Well-appearing, well-nourished, no physical limitations, and in no acute distress. HEAD: Normocephalic, atraumatic. EYES: Conjunctivae normal, PERRLA and EOMI. CHEST: Clear to auscultation. No respiratory distress. No wheezes rales or rhonchi. HEART: Regular rate and rhythm. No murmur heard. Normal peripheral pulses. ABDOMEN: Soft, nontender, nondistended, normal active bowel sounds. BACK: No CVA tenderness; No midline lumbar tenderness, step-offs, bony abnormality; TTP over left lower back/lat dorsii EXTREMITIES: Normal range of motion. No edema. No clubbing or cyanosis. +SLE with LLE SKIN: Warm, dry, no rash. No noted wounds NEURO: No focal deficits. Alert and oriented x3. MAEW. CN's II-XI intact bilaterally PSYCH: Cooperative. Normal mood and affect. Course Vital Signs Vital signs: Vital Signs Temperature 36.7 C 03/12/24 07:31 Pulse Rate 91 03/12/24 07:31 Respiratory Rate 16 03/12/24 07:31 Blood Pressure 140/76 03/12/24 07:31 Pulse Oximetry 98 03/12/24 07:31 Oxygen Delivery Room Air 03/12/24 07:31 Temperature 36.7 C 03/12/24 07:
[2024-03-12 09:53] VITALS: BP 148/84; PULSE 78; RESP 16; TEMP 36.7; O2SAT 100
== END 2024-03-12 10:03 | disposition home or self-care (01) ==
PROVIDERS: Student in an Organized Health Care Education/Training Program; Emergency Provider Nurse Practitioner Family; PCP Internal Medicine Infectious Disease
DX: M62.830 Muscle spasm of back (principal); M54.50 Low back pain, unspecified; J44.9 Chronic obstructive pulmonary disease, unspecified; I10 Essential (primary) hypertension; E78.5 Hyperlipidemia, unspecified; E03.9 Hypothyroidism, unspecified; H35.30 Unspecified macular degeneration; R73.03 Prediabetes; M19.90 Unspecified osteoarthritis, unspecified site; Z87.891 Personal history of nicotine dependence; M47.812 Spondylosis without myelopathy or radiculopathy, cervical region
CPT/HCPCS: 72100; 81003; 99283; A9270

== ENCOUNTER 2024-08-19 13:30 | Outpatient (RCR) | payer MEDICARE, MEDICAID, SELFPAY ==
[2024-07-03 14:15] VITALS: BMI 41.4
[2024-07-03 15:02] VITALS: BMI 41.4
[2024-08-19 13:48] VITALS: BMI 41.1; BMI 41.4
== END 2024-10-01 23:59 | disposition home or self-care (01) ==
LOC: ANHDMC 13:30
PROVIDERS: PCP Internal Medicine Infectious Disease; Visit Provider Internal Medicine Infectious Disease
DX: E11.9 Type 2 diabetes mellitus without complications (principal); Z71.3 Dietary counseling and surveillance
CPT/HCPCS: 97802; 97803

== ENCOUNTER 2024-11-06 09:50 | Outpatient (CLI) | payer MEDICARE, MEDICAID, SELFPAY ==
--- NOTE | ~2024-11-06 | US_ITS ---
COMPLETE ABDOMINAL ULTRASOUND Ordering provider: Kristy PorterAnam History: . LLQ Pain . Comparison: None. FINDINGS: LIVER: Normal size and echotexture. Measures 16.3 cm. No focal hepatic lesions or perihepatic fluid c ollections are identified. Normal flow of the portal vein. Portal vein measures 0.7 cm. GALLBLADDER: Unremarkable. No evidence for stones, sludge, gallbladder wall thickening or pericholecy stic fluid collections. The wall measures 2.4 mm. A negative sonographic Lafleur's sign was noted. BILIARY DUCTS: No evidence for intra or extrahepatic biliary dilation. Common bile duct measures mm i n diameter which is within normal limits. PANCREAS: Partially visualized. Hypoechoic area is seen in the body measuring 1.3 x 2.2 x 1.3 cm. Fol low-up advised. SPLEEN: Normal size, echotexture and contour and measures 7.6 cm in length. KIDNEYS: Right measures 9.1x 3.9x 4.9 cm in length and the left 8.7x 3.8x 4.1 cm in length. There is no evidence for hydronephrosis, solid renal mass, renal calculi or perinephric fluid collections. No renal cysts. UPPER ABDOMINAL AORTA: Normal in caliber. Proximal measures 2.0 cm. Mid measures 1.9 cm. This stone m easures 1.9 cm. IVC: Patent. FREE FLUID: None. Urinary Bladder wall measures 0.2 cm. IMPRESSION: Small Hypoechoic area in the pancreas may be a mass. Lymph node is less likely. Follow-up advised. Un remarkable complete ultrasound of the abdomen. Reviewed, dictated and finalized at location A. SER IMPRESSION: Small Hypoechoic area in the pancreas may be a mass. Lymph node is less likely. Follow-up advised. Unremarkable complete ultrasound of the abdomen.
--- NOTE | ~2024-11-06 | US_ITS ---
US pelvic limited 11/06/2024 11:54 Indication: Left lower quadrant pain. History of hernia mesh surgery in the left lower quadrant 15 ye ars ago. Procedure: High-resolution Limited transabdominal ultrasound of the pelvis Comparison: No prior studies for comparison. Findings: In the area of pain there is dense posterior shadowing. No definitive hernia is identified, although the anterior abdominal wall is not well delineated. Impression: 1: Limited study. No definitive hernia is identified, although further evaluation with CT is recommen ded to exclude subtle hernias. Reviewed, dictated and finalized at location A. PLANT OPERATOR Impression: 1: Limited study. No definitive hernia is identified, although further evaluati on with CT is recommended to exclude subtle hernias.
--- OUTSIDE RECORDS SUMMARY | 2024-11-13 02:19 | XMS_ITS | CONTINUITY OF CARE DOCUMENT ---
Author Name topher obando Address Unknown Organization [facility] Address [id number] [place] [address] [address] [place] [address] Phone [phone] Care Team Providers Care Technical Asst Name Role Phone Krystin CALDERON, Sagar Unavailable [phone] PIPO VASQUEZ MD Unavailable PIPO VASQUEZ MD Unavailable [phone] INSURANCE PROVIDERS Payer name Policy type / Coverage type [place] red libertarian [place] [employer] Medicaid 0 [id number] [place] [employer] Medicare [id number]
--- OUTSIDE RECORDS SUMMARY | 2024-11-13 02:19 | XMS_ITS | Continuity of Care Document ---
Author Organization [facility] Address [address] [place] [address] Phone Care Team Providers Care Strap Stitcher Name Role Phone Gonzalez OD, Mansoor Unavailable Unavailable Procedures Procedure Date Eye Exam & Treatment Dilated Macular Exam Performed 10 Refraction Eye Exam & Treatment Dilated Macular Exam Performed 09 No Script Refraction Eye Exam & Treatment Dilated Macular Exam Performed 08 Refraction Eye Exam & Treatment Visual Functional Status Assessed AREDS Formula Prescribed/Recommended Apr Dilated Macular Exam Performed 07 Advance Directives Directive Yes / No Effective Date File Name No Information Encounters Encounter Description Practice Location Reason(s) For Visit Diagnoses Date Provider Providers Copied on Encounter [facility], [address], [place], [place], [id number], [place] tel:[phone] [facility] No Information [phone] 0 Gonzalez OD Mansoor. [address] , [address], [place], [address], [place]. tel:[phone] [facility], [address], [place], [place], [id number], [place] tel:[phone] [facility] [address] No Information 1-200 9 Gonzalez OD Mansoor. [address] , [address], [place], [address], [place]. tel:[phone] [facility] Eye [facility], [address], [place], [place], [id number], tel:[phone] [facility] [place] No Information 9-200 8 Gonzalez OD Mansoor. [address] , [address], [place], [place], [facility], . tel:[phone] [facility], [address], [place], [place], [id number], [place] tel:[phone] [facility] [place] No Information 0-200 7 Gonzlaez OD Mansoor. [address] , [address], [place], [place], [facility], [place]. tel:[phone] Family History Family Member Type Diagnosis Age At Onset No Information Payers Payer name Insurance type Covered libertarian ID Authoriza tijoe(s) [place] [id number] Social History Type Description Quantity Date Captured Comments Sex Female Smoking Status No Information Chief Complaint And Reason For Visit No Information Reason For Referral Reason For Referral No Information History Of Present Illness Encounter Date Complaint History Of Prese nt Illness No Information Functional Status Date Functional Assessmen t No Information Instructions Date Instruction Additional Infor mation No Information Assessments Type Assessment Date No Information Patient Care Teams Name Effective Dates (start - stop) Status Members No Information
== END 2024-11-06 09:51 | disposition home or self-care (01) ==
PROVIDERS: PCP Internal Medicine Infectious Disease; Visit Provider Internal Medicine Infectious Disease
DX: K86.9 Disease of pancreas, unspecified (principal); R10.32 Left lower quadrant pain
CPT/HCPCS: 76700; 76857